=== PATIENT | female | born 1950 | race Two or more races ===

== ENCOUNTER 2017-11-05 12:03 | Emergency (ER) | payer OTHER ==
[2017-11-05 12:12] VITALS: BMI 35.3
[2017-11-05] MEDS ORDERED: MECLIZINE HCL 25 MG TABLET (FP) PO ONE (12:27)
--- NOTE | 2017-11-05 12:27 | PDOC ---
History of Present Illness - General Chief Complaint: Lightheaded Stated Complaint: HEADACHES Time Seen by Provider: 11/05/17 12:17 History Source: Patient Exam Limitations: No Limitations - History of Present Illness Initial Comments: 11/05/17 12:28 67y F hx of dm, htn, hl, insomnia, asthma, presents with with vertigo. pt notes the symptoms since awakening this morning. vertigo is intermittent and sensation of room spinning, worse with standing,r esolved with siting/staying still. associate with mild pressure like headache. no associated vision changes, dysarthriat, numbness/tingling/weakness no neck pain, back pain, chest pain, recent trauma no fever/chills, cough, sob, abd pain, diarrhea, melena, bpr, dysuria no recent URIs, ear ringing pt notes she has hx of vertigo several years ago, but has not had any since and this feels similar to that pt notes she had lab work from her PMD 1 month ago and everything was normal Past History - Past Medical History Allergies/Adverse Reactions: Allergies Allergy/AdvReac Type Severity Reaction Status Date / Time shrimp Allergy Verified 11/05/17 12:11 Home Medications: Ambulatory Orders Lisinopril 40 mg PO DAILY 11/05/17 Meclizine HCl [Antivert -] 25 mg PO TID PRN #15 tablet 11/05/17 Simvastatin [Zocor -] 20 mg PO HS 11/05/17 Asthma: Yes CVA: No COPD: No DVT: No Diabetes: Yes HTN: Yes Hypercholesterolemia: Yes Other medical history: Insomnia - Immunization History Immunization Up to Date: Yes - Suicide/Smoking/Psychosocial Hx Smoking History: Never smoked Have you smoked in the past 12 months: No Information on smoking cessation initiated: No Hx Alcohol Use: No Drug/Substance Use Hx: No Substance Use Type: None Review of Systems - Review of Systems Able to Perform ROS?: Yes Comments:: 11/05/17 12:32 Constitutional - no reported Fever, Chills, HEENT: no reported vision changes, sore throat Respiratory: no reported cough, sob, hemoptysis Cardiac: no reported chest pain, palpitations, leg swelling Abd/GI: no reported abd pain, nausea, vomiting, blood per rectum, melena, diarrhea : no reported dysuria, frequency, discharge Musculskelatal - no reported back pain, joint swelling skin - no reported bruising, erythema, rash neurological: +mild headache vertigo no reported numbness, focal weakness, tingling, ataxia, hematologic: no reported anemia, easy bruising, easy bleeding *Physical Exam - Vital Signs Last Vital Signs Temp Pulse Resp BP Pulse Ox 98.3 F 64 17 139/87 99 11/05/17 12:08 11/05/17 12:08 11/05/17 12:08 11/05/17 12:08 11/05/17 12:08 - Physical Exam Comments: 11/05/17 12:32 GENERAL: The patient is awake, alert, and fully oriented, Nontoxic - in no acute distress. HEAD: Normocephalic, atraumatic. EYES: extraocular movements intact, sclera anicteric, conjunctiva clear. ENT: Normal voice, Moist mucous membranes. NECK: Normal range of motion, supple LUNGS: Breath sounds equal, clear to auscultation bilaterally. No wheezes, no rhonchi, no rales. HEART: Regular rate and rhythm, normal S1 and S2 without murmur, rub or gallop. ABDOMEN: Soft, nontender, normoactive bowel sounds. No guarding, no rebound. . No CVA tenderness EXTREMITIES: Normal range of motion, no edema. No clubbing or cyanosis. No cords, erythema, or tenderness PSYCH: Normal mood, normal affect. SKIN: Warm, Dry, normal turgor, NEURO: Mental status: The patient is oriented x3. Cranial nerves: Cranial nerves II through XII are intact Motor: The upper extremities are 5 over 5 in all muscle groups. The lower extremities are 5 over 5 in all muscle groups. Negative pronator drift Sensation: Sensation is intact to light touch throughout. romberg negative Cerebellar: Tkgjrn-bolbhu-waws is normal in both upper extremities. Heel-knee- shultz is normal in both lower extremities. rapid alternating movements are normal. Reflexes: 2+ and symmetric in the upper and lower extremities. Gait: Normal. Heel and toe walking are normal. Tandem gait is normal. Heart Score/ECG Review - ECG Impressions Comment:: 11/05/17 15:32 Twelve-lead EKG was performed and reviewed by me. There is normal sinus rhythm with a rate of 59 normal axis tw flattening in lead III Medical Decision Making - Medical Decision Making 11/05/17 12:57 suspect pts symptms secondar to periperhal vertigo no signs of central vertigo - normal neuro exam, normal gaint, normal finger to nose/rapid alternating movements labs as outpatient was normal will ck ekg to screen for arrythima meclizine for vertigo will reassess 11/05/17 15:28 pt feeling improved after meclizine awaiting ekg if neg will dc with pmd fu return precautions were discussed I discussed the physical exam findings, ancillary test results and final diagnoses with the patient. I answered all of the patient's questions. The patient was satisfied with the care received and felt comfortable with the discharge plan and treatment plan. The patient will call their primary care physician within 24 hours to arrange follow-up and will return to the Emergency Department with any new, persistent or worsening symptoms. *DC/Admit/Observation/Transfer Diagnosis at time of Disposition: Vertigo - Discharge Dispostion Disposition: HOME Condition at time of disposition: Improved Admit: No - Referrals Referrals: Sancho Amador MD [Staff Physician] - Naresh Nelson MD [Staff Physician] - - Patient Instructions Printed Discharge Instructions: DI for Benign Paroxysmal Positional Vertigo Additional Instructions: Regrese al departamento de emergencia de inmediato con CUALQUIER sntoma nuevo, persistente o que empeore, incluidos mareos persistentes, cambios en la vista, problemas con pastrana habla o cualquier otra inquietud. [address] la meclizina segn lo recetado segn sea necesario para los mareos. DEBE llamar y hacer un seguimiento con pastrana mdico para matt mayor evaluaci n de willow sntomas. Los resultados fueron discutidos con usted. Asegrese de que pastrana mdico revise los resultados de pastrana evaluacin de emergencia. Return to the emergency department immediately with ANY new, persistent or worsening symptoms including persistent dizziness, vision changes, trouble with your speech or any other concerns. Take the meclizine as prescribed as needed for dizzinesss. You MUST call and follow up with your doctor thursday for further evaluation of your symptoms. Results were discussed with you. Please make sure your doctor reviews the results of your emergency evaluation. Print Language: HUNGARIAN - Post Discharge Activity
[2017-11-05] MEDS ORDERED: MECLIZINE HCL 25 MG TABLET (FP) ONE (12:34)
[2017-11-05 16:01] VITALS: BP 119/73; PULSE 62; TEMP 98
--- NOTE | 2017-11-06 09:29 | EKG ---
Test Reason : Blood Pressure : / mmHG Vent. Rate : 059 BPM Atrial Rate : 059 BPM P-R Int : 160 ms QRS Dur : 076 ms QT Int : 458 ms P-R-T Axes : 042 054 032 degrees QTc Int : 453 ms SINUS BRADYCARDIA POSSIBLE LEFT ATRIAL ENLARGEMENT ABNORMAL ECG NO PREVIOUS ECGS AVAILABLE Confirmed by ANNA MARINA MD ([id number]) on 11/06/2017 9:28:52 AM Referred By: Confirmed By:ANNA MARINA MD
== END 2017-11-05 16:04 | disposition home or self-care (01) ==
LOC: JER 12:03
DX: H81.10 Benign paroxysmal vertigo, unspecified ear (principal); I10 Essential (primary) hypertension; E78.00 Pure hypercholesterolemia, unspecified; J45.909 Unspecified asthma, uncomplicated; E11.9 Type 2 diabetes mellitus without complications; Z79.84 Long term (current) use of oral hypoglycemic drugs; G47.00 Insomnia, unspecified
CPT/HCPCS: 93005; 93010; 99282-25

== ENCOUNTER 2018-12-30 09:00 | Emergency (ER) | payer OTHER | END 2018-12-30 14:54 | disposition home or self-care (01) | LOC: JER 09:00 ==

== ENCOUNTER 2019-06-01 09:33 | Emergency (ER) | payer OTHER ==
[2019-06-01 10:01] VITALS: PULSE 65; BMI 34.0
--- NOTE | 2019-06-01 10:29 | PDOC ---
History of Present Illness - General Chief Complaint: Back Pain Stated Complaint: NECK AND BACK PAIN Time Seen by Provider: 06/01/19 09:59 History Source: Patient Exam Limitations: Language Barrier ([employer] used. [id number]) Past History - Travel Traveled outside of the country in the last 30 days: No Close contact w/someone who was outside of country & ill: No - Past Medical History Allergies/Adverse Reactions: Allergies Allergy/AdvReac Type Severity Reaction Status Date / Time shrimp Allergy Verified 12/30/18 09:28 Home Medications: Ambulatory Orders Lisinopril 40 mg PO DAILY 11/05/17 Simvastatin [Zocor -] 20 mg PO HS 11/05/17 Calcium Carbonate [Calcium] 500 mg PO ASDIR 12/30/18 Hydrochlorothiazide [Hctz -] 12.5 mg PO DAILY 12/30/18 Melatonin [Melatin] 3 mg PO HS 12/30/18 Metformin HCl [Glucophage] 500 mg PO DAILY 12/30/18 Insulin Glargine,Hum.rec.anlog [Lantus Solostar PEN -] 8 unit SQ HS 06/01/19 Liraglutide [Victoza -] 1.2 mg SQ DAILY@0700 06/01/19 Asthma: Yes CVA: No COPD: No DVT: No Diabetes: Yes HTN: Yes Hypercholesterolemia: Yes - Immunization History Immunization Up to Date: Yes - Psycho Social/Smoking Cessation Hx Smoking History: Never smoked Have you smoked in the past 12 months: No Hx Alcohol Use: No Drug/Substance Use Hx: No Substance Use Type: None Review of Systems - Review of Systems Able to Perform ROS?: Yes Comments:: 06/01/19 10:37 CONSTITUTIONAL: Present: generalized weakness Absent: fever, chills, diaphoresis, generalized weakness, malaise, loss of appetite GASTROINTESTINAL: Absent: abdominal pain, abdominal distension, nausea, vomiting, diarrhea, constipation, melena, hematochezia GENITOURINARY: Absent: dysuria, frequency, urgency, hesitancy, hematuria, flank pain, genital pain MUSCULOSKELETAL: Present: low back pain, neck pain Absent: arthralgia, joint swelling SKIN: Absent: rash, itching, pallor NEUROLOGIC: Absent: headache, focal weakness or paresthesias, dizziness, unsteady gait, seizure, mental status changes, bladder or bowel incontinence PSYCHIATRIC: Absent: anxiety, depression, suicidal or homicidal ideation, hallucinations. Is the patient limited Trinidadian proficient: No *Physical Exam - Vital Signs Last Vital Signs Temp Pulse Resp BP Pulse Ox 98 F 65 18 122/65 95 06/01/19 09:51 06/01/19 09:51 06/01/19 09:51 06/01/19 09:51 06/01/19 09:51 - Physical Exam Comments: 06/01/19 10:39 GENERAL: Well developed, well nourished. Awake and alert. No acute distress. HEENT: Normocephalic, atraumatic. PERRLA, EOMI. No conjunctival pallor. Sclera are non- icteric. Moist mucous membranes. Oropharynx is clear. NECK: Supple. Full ROM. No JVD. Carotid pulses 2+ and symmetric, without bruits. No thyromegaly. No lymphadenopathy. ABDOMINAL: Soft. Non-tender. Non-distended. No rebound or guarding. No organomegaly. Normoactive bowel sounds. MUSCULOSKELETAL Normal range of motion at all joints. No bony deformities or tenderness. No CVA tenderness. EXTREMITIES: No cyanosis. No clubbing. No edema. No calf tenderness. SKIN: Warm and dry. Normal capillary refill. No rashes. No jaundice. NEUROLOGICAL: Alert, awake, appropriate. Cranial nerves 2-12 intact. No deficits to light touch and temperature in face, upper extremities and lower extremities. No motor deficits in the in face, upper extremities and lower extremities. Normoreflexic in the upper and lower extremities. Normal speech. Toes are down- going bilaterally. Gait is normal without ataxia. PSYCHIATRIC: Cooperative. Good eye contact. Appropriate mood and affect. ED Treatment Course - LABORATORY CBC & Chemistry Diagram: 06/01/19 10:55 06/01/19 10:35 Medical Decision Making - Medical Decision Making 06/01/19 10:39 The patient is a 68-year-old female with past medical history of hyperlipidemia , IDDM, hypertension, presents to the ER today for back pain and neck pain starting yesterday. She states that she recently saw her primary care doctor and they changed her medications after her last blood work results were given. She states that they placed her back on simvastatin, and increased her dose of her Victoza. She states that after taking the medications at their no doses, her back pain began. She states it was all the way from her neck down to her legs. She states that the pain is midline. She has not fallen or done any strenuous activity. She does not work. Denies fevers, chills, lightheadedness , dizziness, numbness and tingling to the affected extremities, weakness the affected extremities, saddle anesthesia and bladder bowel incontinence, and urinary symptoms. A/P: Low back pain -Pt with TTP of the b/l paraspinous muscles, of the c-spine through the lumbar sacral spine, with palpable knot consistent with muscle spasm. Positive midline tenderness. Negative straight leg raise testing bilaterally. -No trauma, or fever. No saddle anesthesia or bladder/bowel incontinence. No CVA tenderness. -Pt is neurologically intact on exam with no focal findings. -Given the patient's medication has changed recently, will order basic labs to rule out rhabdo, lactic acidosis. -Muscle relaxers, fluids and lidocaine patch given for symptoms -Reevaluate 06/01/19 16:50 1st lactic acid back at 3.2 -->2.1 after 2 L of fluids Likely d/t diabetic medication combination including Metformin Hold metformin Pending call to PCP for follow up and management of sugar now that we are holding Metformin Sign out given to FAN Keys. Discharge - Discharge Information Problems reviewed: Yes Clinical Impression/Diagnosis: Lactic acidosis Lower back pain Qualifiers: Chronicity: acute Back pain laterality: unspecified Sciatica presence: without sciatica Qualified Code(s): M54.5 - Low back pain Condition: Improved Disposition: HOME - Follow up/Referral Referrals: ON STAFF,NOT [Primary Care Provider] - - Patient Discharge Instructions Patient Printed Discharge Instructions: DI for Low Back Pain Additional Instructions: Thank you for choosing [facility]. It was a pleasure taking care of you. You may take Tylenol 650 mg every 6 hours as needed for pain. Do not take more than 4000 mg of Tylenol in 1 day Please stop taking your Metformin You will need to see your doctor tomorrow for adjustment of your diabetic medications Return to the Emergency Department if your symptoms worsen or persist, you have fever, shortness of breath, chest pain, severe abdominal pain, vomiting, weakness of extremities (arms and/or legs), changes in vision or walking, unable to control bowel or bladder movements or other concerning symptoms. Chyna pollack el [facility]. Fue un placer cuidar de ti. Puede oswaldo Tylenol 650 mg cada 6 horas segn sea necesario para el dolor. No tome ms de 4000 mg de Tylenol en 1 da. Por favor, deje de oswaldo pastrana metformina Necesitar rebecca a pastrana mdico maana para ajustar willow medicamentos para la diabetes. Regrese al departamento de emergencias si willow sntomas empeoran o persisten, tiene fiebre, falta de aliento, dolor en el pecho, dolor abdominal intenso, vmitos, debilidad de las extremidades (brazos y / o piernas), cambios en la visin o al caminar, incapaz de controlar el intestino. o movimientos de la vejiga u otros sntomas relacionados. Print Language: YORUBA - Post Discharge Activity
[2019-06-01] MEDS ORDERED: SODIUM CHLORIDE 1,000 ML IV STA ×2 (10:31→12:19)
[2019-06-01] MEDS ORDERED: LIDOCAINE 5% TOPICAL PATCH TP ONE (10:32)
[2019-06-01] MEDS ORDERED: diazePAM 5 MG TABLET PO ONE (10:32)
[2019-06-01] MEDS ORDERED: diazePAM 5 MG TABLET ONE (10:37)
[2019-06-01 11:15] LABS: BASO % 0.4 % (0-2.0); EOS % 1.1 % (0-4.5); HEMATOCRIT 34.1 % (32.4-45.2); HEMOGLOBIN 11.4 GM/dL (10.7-15.3); LYMPH % 16.2 % (8-40); MCH 29.1 pg (25.7-33.7); MCHC 33.4 g/dl (32.0-36.0); MEAN CELL VOLUME 86.9 fl (80-96); MEAN PLT VOLUME 8.6 fl (7.5-11.1); MONO % 5.9 % (3.8-10.2); NEUT % 76.4 % (42.8-82.8); PLATELET COUNT 274 K/MM3 (134-434); RBC 3.93 M/mm3 (3.60-5.2); RDW 13.5 % (11.6-15.6); WHITE BLOOD COUNT 9.2 K/mm3 (4.0-10.0)
[2019-06-01] MEDS ORDERED: LIDOCAINE 5% TOPICAL PATCH ONE (11:17)
[2019-06-01 11:31] LABS: URINE APPEARANCE CLEAR; URINE BILIRUBIN NEGATIVE (NEGATIVE); URINE COLOR YELLOW; URINE GLUCOSE (UA) NEGATIVE (NEGATIVE); URINE KETONE TRACE (NEGATIVE); URINE LEUK ESTERASE NEGATIVE (NEGATIVE); URINE NITRITE NEGATIVE (NEGATIVE); URINE PROTEIN NEGATIVE (NEGATIVE); URINE UROBILINOGEN 0.2 mg/dL (0.2-1.0)
--- NOTE | 2019-06-01 11:38 | EKG ---
Test Reason : Blood Pressure : / mmHG Vent. Rate : 065 BPM Atrial Rate : 065 BPM P-R Int : 174 ms QRS Dur : 084 ms QT Int : 404 ms P-R-T Axes : 043 053 036 degrees QTc Int : 420 ms NORMAL SINUS RHYTHM NORMAL ECG WHEN COMPARED WITH ECG OF 05-NOV-2017 15:24, NO SIGNIFICANT CHANGE WAS FOUND Confirmed by LEXI ROSARIO MD ([id number]) on 06/01/2019 11:38:46 AM Referred By: Confirmed By:LEXI ROSARIO MD
[2019-06-01 12:02] LABS: ALBUMIN 3.4 g/dl (3.4-5.0); BILIRUBIN,TOTAL 0.4 mg/dL (0.2-1); BLOOD UREA NITROGEN 19.1 mg/dL (7-18); CALCIUM 9.2 mg/dL (8.5-10.1); CREATININE 0.9 mg/dL (0.55-1.3); POTASSIUM 5.1 mmol/L (3.5-5.1); TOT PROT 7.3 g/dl (6.4-8.2)
[2019-06-01 14:46] VITALS: BP 127/75; TEMP 98.1
[2019-06-01] MEDS ORDERED: ACETAMINOPHEN 325 MG TABLET (FP) PO ONE (17:03)
--- NOTE | 2019-06-01 17:07 | PDOC ---
*Physical Exam - Vital Signs Last Vital Signs Temp Pulse Resp BP Pulse Ox 98.1 F 65 18 127/75 97 06/01/19 14:40 06/01/19 14:40 06/01/19 14:40 06/01/19 14:40 06/01/19 14:40 ED Treatment Course - LABORATORY CBC & Chemistry Diagram: 06/01/19 10:55 06/01/19 10:35 - ADDITIONAL ORDERS Additional order review: Laboratory Results 06/01/19 06/01/19 06/01/19 13:55 11:10 10:55 Sodium Potassium Chloride Carbon Dioxide Anion Gap BUN Creatinine Est GFR (CKD-EPI)AfAm Est GFR (CKD-EPI)NonAf Random Glucose Lactic Acid 2.1 H 3.2 H* Calcium Total Bilirubin AST ALT Alkaline Phosphatase Creatine Kinase Creatine Kinase Index CK-MB (CK-2) Total Protein Albumin TSH Urine Color Yellow Urine Appearance Clear Urine pH 5.0 Ur Specific [place] 1.024 Urine Protein Negative Urine Glucose (UA) Negative Urine Ketones Trace H Urine Blood Negative Urine Nitrite Negative Urine Bilirubin Negative Urine Urobilinogen 0.2 Ur Leukocyte Esterase Negative 06/01/19 06/01/19 10:35 10:35 Sodium 135 L Potassium 5.1 Chloride 102 Carbon Dioxide 26 Anion Gap 7 L BUN 19.1 H Creatinine 0.9 Est GFR (CKD-EPI)AfAm 76.14 Est GFR (CKD-EPI)NonAf 65.70 Random Glucose 161 H Lactic Acid Calcium 9.2 Total Bilirubin 0.4 AST 61 H ALT 60 Alkaline Phosphatase 97 Creatine Kinase 165 Creatine Kinase Index No Result Required. CK-MB (CK-2) < 1.0 Total Protein 7.3 Albumin 3.4 TSH 0.65 Urine Color Urine Appearance Urine pH Ur Specific [place] Urine Protein Urine Glucose (UA) Urine Ketones Urine Blood Urine Nitrite Urine Bilirubin Urine Urobilinogen Ur Leukocyte Esterase 06/01/19 10:55 RBC 3.93 MCV 86.9 MCHC 33.4 RDW 13.5 MPV 8.6 Neutrophils % 76.4 D Lymphocytes % 16.2 D Monocytes % 5.9 Eosinophils % 1.1 D Basophils % 0.4 - Medications Given in the ED: ED Medications Discontinued Medications Generic Name Dose Route Start Last Admin Trade Name Freq PRN Reason Stop Dose Admin Diazepam 5 mg 06/01/19 10:32 06/01/19 10:45 Valium - PO 06/01/19 10:33 5 mg ONCE ONE Administration Sodium Chloride 1,000 mls @ 1,000 mls/hr 06/01/19 10:31 06/01/19 10:45 Normal Saline - IV 06/01/19 11:30 1,000 mls/hr ASDIR STA Administration Sodium Chloride 1,000 mls @ 1,000 mls/hr 06/01/19 12:19 06/01/19 12:29 Normal Saline - IV 06/01/19 13:18 1,000 mls/hr ASDIR STA Administration Lidocaine 1 patch 06/01/19 10:32 06/01/19 11:22 Lidoderm Patch - TP 06/01/19 10:33 1 patch ONCE ONE Administration Medical Decision Making - Medical Decision Making Patient signed out to my by FAN Dunham S/O was to reach patient PCP to obtain follow-up for patient However, clinic closed at this time Patient endorses improvement in back pain and is ambulatory Lactic acid improved Possible cause of lactic acidosis believed to be metformin Patient advised to stop the metformin and f/u with her PCP Patient states she understands and will go to the clinic tomorrow 06/01/19 17:03 Discharge - Discharge Information Problems reviewed: Yes Clinical Impression/Diagnosis: Lactic acidosis Lower back pain Qualifiers: Chronicity: acute Back pain laterality: unspecified Sciatica presence: without sciatica Qualified Code(s): M54.5 - Low back pain Condition: Improved Disposition: HOME - Admission No - Additional Discharge Information Prescription Drug Monitoring Program (I-STOP) results: I-STOP not reviewed - Follow up/Referral Referrals: ON STAFF,NOT [Primary Care Provider] - - Patient Discharge Instructions Patient Printed Discharge Instructions: DI for Low Back Pain Additional Instructions: Thank you for choosing [facility]. It was a pleasure taking care of you. You may take Tylenol 650 mg every 6 hours as needed for pain. Do not take more than 4000 mg of Tylenol in 1 day Please stop taking your Metformin You will need to see your doctor tomorrow for adjustment of your diabetic medications Return to the Emergency Department if your symptoms worsen or persist, you have fever, shortness of breath, chest pain, severe abdominal pain, vomiting, weakness of extremities (arms and/or legs), changes in vision or walking, unable to control bowel or bladder movements or other concerning symptoms. Chyna por elegir el [facility]. Fue un placer cuidar de ti. Puede oswaldo Tylenol 650 mg cada 6 horas segn sea necesario para el dolor. No tome ms de 4000 mg de Tylenol en 1 da. Por favor, deje de oswaldo pastrana metformina Necesitar rebecca a pastrana mdico maana para ajustar [place] medicamentos para la diabetes. Regrese al departamento de emergencias si willow sntomas empeoran o persisten, tiene fiebre, falta de aliento, dolor en el pecho, dolor abdominal intenso, vmitos, debilidad de las extremidades (brazos y / o piernas), cambios en la visin o al caminar, incapaz de controlar el intestino. o movimientos de la vejiga u otros sntomas relacionados. Print Language: BURKINAN - Post Discharge Activity
[2019-06-01] MEDS ORDERED: ACETAMINOPHEN 325 MG TABLET (FP) ONE (17:09)
[2019-06-01] MEDS ORDERED: LIDOCAINE PATCH REMOVAL MC SCH (22:00)
== END 2019-06-01 17:38 | disposition home or self-care (01) ==
LOC: JER 09:33
DX: E11.10 Type 2 diabetes mellitus with ketoacidosis without coma (principal); Z79.4 Long term (current) use of insulin; I10 Essential (primary) hypertension; E78.00 Pure hypercholesterolemia, unspecified; M62.830 Muscle spasm of back
CPT/HCPCS: 36415; 80053; 81003; 82550; 82553; 83605; 84443; 85025; 87086; 87186; 93005; 93010; 99283-25; J7030

== ENCOUNTER 2020-08-10 03:18 | Emergency (ER) | payer OTHER ==
[2020-08-10 03:38] VITALS: BMI 35.5
[2020-08-10 04:20] LABS: BASO % 0.4 % (0-2.0); EOS % 0.6 % (0-4.5); HEMATOCRIT 40.3 % (32.4-45.2); HEMOGLOBIN 13.1 GM/dL (10.7-15.3); LYMPH % 8.1 % (8-40); MCH 28.3 pg (25.7-33.7); MCHC 32.5 g/dl (32.0-36.0); MEAN CELL VOLUME 87.1 fl (80-96); MEAN PLT VOLUME 9.2 fl (7.5-11.1); MONO % 3.6 % (3.8-10.2); NEUT % 87.3 % (42.8-82.8); PLATELET COUNT 289 K/MM3 (134-434); RBC 4.63 M/mm3 (3.60-5.2); RDW 13.8 % (11.6-15.6)
[2020-08-10 04:43] LABS: CHLORIDE 104 mmol/L (98-107); SODIUM 139 mmol/L (136-145)
[2020-08-10 04:46] LABS: ALBUMIN 3.4 g/dl (3.4-5.0); ANION GAP 10 MMOL/L (8-16); BLOOD UREA NITROGEN 15.6 mg/dL (7-18); CALCIUM 9.1 mg/dL (8.5-10.1); CO2 25 mmol/L (21-32); GLUCOSE,RANDOM 234 mg/dL (74-106)
[2020-08-10 04:49] LABS: SGOT/AST 26 U/L (15-37); SGPT/ALT 36 U/L (13-61)
[2020-08-10 04:51] LABS: BILIRUBIN,TOTAL 0.4 mg/dL (0.2-1); TOT PROT 7.4 g/dl (6.4-8.2)
[2020-08-10 04:52] LABS: ALK PHOS 94 U/L (45-117)
[2020-08-10 07:00] VITALS: BP 141/90; PULSE 90; TEMP 97.9
== END 2020-08-10 07:02 | disposition home or self-care (01) ==
LOC: JER 03:18
DX: R10.9 Unspecified abdominal pain (principal)
CPT/HCPCS: 36415; 71046-TC-FY; 80053; 82550; 84484; 85025; 93005; 93010; 99284-25

== ENCOUNTER 2021-07-07 15:37 | Emergency (ER) | payer OTHER ==
[2021-07-07 15:56] VITALS: BMI 31.1
[2021-07-07] MEDS ORDERED: MAG HYDROX/AL HYDROX/SIMETH -MYLANTA- ORAL SUSPENSION PO ONE (16:41)
[2021-07-07] MEDS ORDERED: SODIUM CHLORIDE 0.9% 1000 ML INFUS.BAG IV ONE (16:41)
[2021-07-07] MEDS ORDERED: FAMOTIDINE 20 MG/50 ML IVPB 20 MG/50 ML MG IVPB ONE ×2 (16:41→16:49)
[2021-07-07] MEDS ORDERED: ACETAMINOPHEN 1000 MG/100 ML VIAL IVPB ONE (16:41)
[2021-07-07] MEDS ORDERED: ACETAMINOPHEN INJECTION 100 ML IVPB ONE (16:49)
[2021-07-07] MEDS ORDERED: MAG HYDROX/AL HYDROX/SIMETH 30 ML UNIT-DOSE CUP ONE (16:49)
[2021-07-07 17:26] LABS: BASO % 0.8 % (0-2.0); EOS % 2.7 % (0-4.5); HEMATOCRIT 37.3 % (32.4-45.2); HEMOGLOBIN 12.5 GM/dL (10.7-15.3); MCH 28.5 pg (25.7-33.7); MCHC 33.4 g/dl (32.0-36.0); MEAN CELL VOLUME 85.3 fl (80-96); MEAN PLT VOLUME 8.4 fl (7.5-11.1); NEUT % 64.5 % (42.8-82.8); PLATELET COUNT 285 10^3/uL (134-434); RBC 4.38 M/mm3 (3.60-5.2); RDW 14.7 % (11.6-15.6); URINE APPEARANCE CLEAR; URINE BILIRUBIN NEGATIVE (NEGATIVE); URINE COLOR YELLOW; URINE GLUCOSE (UA) TRACE (NEGATIVE); URINE KETONE NEGATIVE (NEGATIVE); URINE LEUK ESTERASE NEGATIVE (NEGATIVE); URINE NITRITE NEGATIVE (NEGATIVE); URINE PROTEIN NEGATIVE (NEGATIVE); URINE UROBILINOGEN 0.2 mg/dL (0.2-1.0); WHITE BLOOD COUNT 10.3 K/mm3 (4.0-10.0)
[2021-07-07 17:37] LABS: INR 0.97 (0.83-1.09); PROTHROMBIN TIME (PATIENT) 11.3 SEC (9.7-13.0)
[2021-07-07 17:39] LABS: ACTIVATED PTT 30.3 SECONDS (25.2-36.5)
[2021-07-07 17:42] LABS: CALCIUM 9.1 mg/dL (8.5-10.1)
[2021-07-07 17:43] LABS: ALBUMIN 3.6 g/dl (3.4-5.0); BLOOD UREA NITROGEN 12.4 mg/dL (7-18)
[2021-07-07 17:45] LABS: CREATININE 0.9 mg/dL (0.55-1.3)
[2021-07-07 17:47] LABS: BILIRUBIN,TOTAL 0.5 mg/dL (0.2-1); TOT PROT 7.7 g/dl (6.4-8.2)
[2021-07-07 20:40] VITALS: BP 115/73; PULSE 67; TEMP 97.8
== END 2021-07-07 20:55 | disposition home or self-care (01) ==
LOC: JER 15:37
PROC: 3E0333Z Introduction of Anti-inflammatory into Peripheral Vein, Percutaneous Approach (ICD-10-PCS; principal; 2021-07-07)
PROC: 3E033GC Introduction of Other Therapeutic Substance into Peripheral Vein, Percutaneous Approach (ICD-10-PCS; 2021-07-07)
DX: R10.9 Unspecified abdominal pain (principal); R19.7 Diarrhea, unspecified
CPT/HCPCS: 36415; 71101-TC-LT-FY; 80053; 81003; 83690; 84484; 85025; 85610; 85730; 86850; 86900; 86901; 87086; 93005; 93010; 96374; 96375; 99285-25; C9803; J0131; U0003; U0005

== ENCOUNTER 2021-11-06 12:30 | Emergency (ER) | payer OTHER ==
[2021-11-06 12:53] VITALS: BMI 30.9
[2021-11-06] MEDS ORDERED: SODIUM CHLORIDE 0.9% 500 ML INFUS.BAG IV ONE (13:21)
[2021-11-06 14:56] LABS: BASO % 0.6 % (0-2.0); EOS % 3.7 % (0-4.5); HEMATOCRIT 39.4 % (32.4-45.2); HEMOGLOBIN 12.9 GM/dL (10.7-15.3); LYMPH % 20.3 % (8-40); MCH 28.5 pg (25.7-33.7); MCHC 32.8 g/dl (32.0-36.0); MEAN PLT VOLUME 8.7 fl (7.5-11.1); MONO % 8.6 % (3.8-10.2); NEUT % 66.8 % (42.8-82.8); PLATELET COUNT 274 10^3/uL (134-434); RBC 4.53 M/mm3 (3.60-5.2); RDW 14.4 % (11.6-15.6)
[2021-11-06 15:17] LABS: ALBUMIN 3.6 g/dl (3.4-5.0); CALCIUM 9.4 mg/dL (8.5-10.1)
[2021-11-06 15:18] LABS: BLOOD UREA NITROGEN 12.4 mg/dL (7-18); MAGNESIUM 2.1 mg/dL (1.8-2.4)
[2021-11-06 15:20] LABS: CREATININE 0.9 mg/dL (0.55-1.3)
[2021-11-06 15:22] LABS: BILIRUBIN,TOTAL 0.4 mg/dL (0.2-1); TOT PROT 7.7 g/dl (6.4-8.2)
[2021-11-06 15:35] LABS: URINE APPEARANCE CLEAR; URINE BILIRUBIN NEGATIVE (NEGATIVE); URINE COLOR YELLOW; URINE GLUCOSE (UA) NEGATIVE (NEGATIVE); URINE KETONE NEGATIVE (NEGATIVE); URINE LEUK ESTERASE NEGATIVE (NEGATIVE); URINE NITRITE NEGATIVE (NEGATIVE); URINE PROTEIN NEGATIVE (NEGATIVE); URINE UROBILINOGEN 0.2 mg/dL (0.2-1.0)
[2021-11-06] MEDS ORDERED: ACETAMINOPHEN 1000 MG/100 ML BAG IVPB ONE (16:26)
[2021-11-06] MEDS ORDERED: ACETAMINOPHEN INJECTION 100 ML IVPB ONE (16:59)
[2021-11-06 18:47] VITALS: BP 143/79; PULSE 88; TEMP 98.6
[2021-11-07 14:08] LABS: SARS-CoV-2 NAA Not Detected (Not Detected)
== END 2021-11-06 18:52 | disposition home or self-care (01) ==
LOC: JER 12:30
PROC: 3E033GC Introduction of Other Therapeutic Substance into Peripheral Vein, Percutaneous Approach (ICD-10-PCS; principal; 2021-11-06)
DX: E11.65 Type 2 diabetes mellitus with hyperglycemia (principal); R51.9 Headache, unspecified
CPT/HCPCS: 36415; 71046-TC-FY; 80053; 81003; 82962; 83735; 84484; 85025; 87086; 87804; 93005; 93010; 99285-25; C9803-CS; U0003; U0005

== ENCOUNTER 2022-02-20 00:22 | Inpatient (IN) | payer OTHER ==
[2022-02-20] MEDS ORDERED: SODIUM CHLORIDE 1,000 ML IV ONE (01:02)
[2022-02-20 01:25] LABS: BASO % 0.8 % (0-2.0); HEMATOCRIT 37.9 % (32.4-45.2); HEMOGLOBIN 12.4 GM/dL (10.7-15.3); LYMPH % 23.6 % (8-40); MCH 27.9 pg (25.7-33.7); MCHC 32.7 g/dl (32.0-36.0); MEAN CELL VOLUME 85.4 fl (80-96); MEAN PLT VOLUME 8.9 fl (7.5-11.1); MONO % 6.5 % (3.8-10.2); NEUT % 67.1 % (42.8-82.8); PLATELET COUNT 292 10^3/uL (134-434); RBC 4.44 M/mm3 (3.60-5.2); RDW 14.7 % (11.6-15.6); VENOUS BASE EXCESS 2.7 mmol/L (-2-2); VENOUS O2 SATURATION 62.2 % (70-80); VENOUS PCO2 50.5 mmHg (38-52); VENOUS PH 7.374 (7.310-7.410); WHITE BLOOD COUNT 11.1 K/mm3 (4.0-10.0)
[2022-02-20 01:34] LABS: INR 0.9 (0.83-1.09); PROTHROMBIN TIME (PATIENT) 10.3 SEC (9.7-13.0)
[2022-02-20 01:37] LABS: ACTIVATED PTT 32.6 SECONDS (25.2-36.5)
[2022-02-20 01:49] LABS: BLOOD UREA NITROGEN 20.8 mg/dL (7-18); CALCIUM 9.2 mg/dL (8.5-10.1); MAGNESIUM 2.2 mg/dL (1.8-2.4)
[2022-02-20 01:50] LABS: ALBUMIN 3.6 g/dl (3.4-5.0)
[2022-02-20 01:52] LABS: PHOSPHOROUS 3.9 mg/dL (2.5-4.9)
[2022-02-20 01:53] LABS: CREATININE 1.1 mg/dL (0.55-1.3)
[2022-02-20 01:54] LABS: BILIRUBIN,TOTAL 0.9 mg/dL (0.2-1); TOT PROT 7.7 g/dl (6.4-8.2)
[2022-02-20 02:48] LABS: PH,URINE 6.5 (5.0-8.0); URINE APPEARANCE CLEAR; URINE BILIRUBIN NEGATIVE (NEGATIVE); URINE COLOR YELLOW; URINE GLUCOSE (UA) 3+ (NEGATIVE); URINE KETONE NEGATIVE (NEGATIVE); URINE LEUK ESTERASE NEGATIVE (NEGATIVE); URINE NITRITE NEGATIVE (NEGATIVE); URINE PROTEIN NEGATIVE (NEGATIVE); URINE UROBILINOGEN 0.2 mg/dL (0.2-1.0)
[2022-02-20 04:11] VITALS: BMI 30.1
[2022-02-20 04:46] LABS: LACTIC ACID 2.6 mmol/L (0.4-2.0)
[2022-02-20] MEDS ORDERED: LACTATED RINGERS SOLUTION 1,000 ML/1,000 ML INFUS.BAG IV SCH (06:00)
[2022-02-20 06:38] VITALS: TEMP 98
[2022-02-20] MEDS ORDERED: CALCIUM (OYSTER SHELL) 500 MG TABLET (FP) PO SCH ×2 (07:00→08:00)
[2022-02-20] MEDS: INSULIN SLIDING SCALE (NOVOLOG) 1 VIAL SQ SCH ×2 (08:03→14:27)
[2022-02-20] MEDS ORDERED: LISINOPRIL 20 MG TABLET ONE (09:39)
[2022-02-20] MEDS ORDERED: ENOXAPARIN NA (PORCINE) 40 MG/0.4 ML DISP.SYRIN SQ ONE (09:39)
[2022-02-20] MEDS ORDERED: PANTOPRAZOLE 40 MG TABLET PO ONE (09:39)
[2022-02-20 09:50] VITALS: RESP 18
[2022-02-20] MEDS ORDERED: ENOXAPARIN NA (PORCINE) 40 MG/0.4 ML DISP.SYRIN SQ SCH (10:00)
[2022-02-20] MEDS ORDERED: PANTOPRAZOLE 40 MG TABLET PO SCH (10:00)
[2022-02-20] MEDS ORDERED: LISINOPRIL 20 MG TABLET PO SCH (10:00)
[2022-02-20 13:03] LABS: HEMATOCRIT 38.3 % (32.4-45.2); HEMOGLOBIN 12.7 GM/dL (10.7-15.3); MCH 28.3 pg (25.7-33.7); MCHC 33.1 g/dl (32.0-36.0); MEAN CELL VOLUME 85.7 fl (80-96); PLATELET COUNT 280 10^3/uL (134-434); RBC 4.48 M/mm3 (3.60-5.2); RDW 14.5 % (11.6-15.6); WHITE BLOOD COUNT 10.7 K/mm3 (4.0-10.0)
[2022-02-20 13:27] LABS: CALCIUM 9.5 mg/dL (8.5-10.1)
[2022-02-20 13:28] LABS: ALBUMIN 3.8 g/dl (3.4-5.0); BLOOD UREA NITROGEN 23.2 mg/dL (7-18); CALCIUM 9.2 mg/dL (8.5-10.1)
[2022-02-20 13:29] LABS: ALBUMIN 3.8 g/dl (3.4-5.0); BLOOD UREA NITROGEN 20.8 mg/dL (7-18); MAGNESIUM 2.5 mg/dL (1.8-2.4)
[2022-02-20 13:31] LABS: CREATININE 0.8 mg/dL (0.55-1.3)
[2022-02-20 13:32] LABS: CREATININE 0.8 mg/dL (0.55-1.3)
[2022-02-20 13:33] LABS: BILIRUBIN,TOTAL 0.4 mg/dL (0.2-1); TOT PROT 7.6 g/dl (6.4-8.2); TOT PROT 7.7 g/dl (6.4-8.2)
[2022-02-20 14:31] VITALS: BP 135/74; PULSE 66
[2022-02-20] MEDS ORDERED: MELATONIN 1 MG TABLET PO SCH (22:00)
[2022-02-20] MEDS ORDERED: ATORVASTATIN CA 40 MG TABLET (FP) PO SCH (22:00)
== END 2022-02-20 14:30 | disposition home or self-care (01) | DRG 684 ==
LOC: JER 00:22 → JERBED 01:28 → OBSVTOIN 05:12
PROVIDERS: ADMIT Internal Medicine; ATTEND Internal Medicine
DX: N17.9 Acute kidney failure, unspecified (principal); R55 Syncope and collapse; R42 Dizziness and giddiness; I10 Essential (primary) hypertension; E78.5 Hyperlipidemia, unspecified; E86.0 Dehydration; E11.65 Type 2 diabetes mellitus with hyperglycemia; D72.829 Elevated white blood cell count, unspecified; Z79.4 Long term (current) use of insulin; E78.00 Pure hypercholesterolemia, unspecified; T38.3X5A Adverse effect of insulin and oral hypoglycemic [antidiabetic] drugs, initial encounter
CPT/HCPCS: 0241U-QW; 36415; 70450-TC; 71045-TC-FY; 80053; 81003; 82550; 82553; 82803; 82962; 83036; 83605; 83735; 84100; 84443; 84484; 85025; 85027; 85610; 85730; 86850; 86900; 86901; 87086; 93005; 93010; 99285-25; G0378

== ENCOUNTER 2022-05-05 12:51 | Emergency (ER) | payer OTHER ==
[2022-05-05 14:24] VITALS: BP 159/84; PULSE 74; RESP 17; TEMP 97.7; BMI 35.1
== END 2022-05-05 16:16 | disposition home or self-care (01) ==
LOC: JER 12:51
DX: R73.9 Hyperglycemia, unspecified (principal)
CPT/HCPCS: 82962; 99283-25

== ENCOUNTER 2022-07-05 13:41 | Emergency (ER) | payer OTHER ==
[2022-07-05 14:30] VITALS: RESP 18; BMI 34.9
[2022-07-05] MEDS ORDERED: ACETAMINOPHEN 325 MG TABLET (FP) PO ONE (15:38)
[2022-07-05] MEDS ORDERED: METOCLOPRAMIDE HCL INJECTION 10 MG/2 ML VIAL IVPUSH ONE (15:38)
[2022-07-05] MEDS ORDERED: ACETAMINOPHEN 325 MG TABLET (FP) ONE (15:58)
[2022-07-05] MEDS ORDERED: METOCLOPRAMIDE HCL INJECTION 10 MG/2 ML VIAL ONE (15:58)
[2022-07-05 16:30] LABS: BASO % 1.3 % (0-2.0); EOS % 2.4 % (0-4.5); HEMATOCRIT 40.6 % (32.4-45.2); HEMOGLOBIN 13.2 GM/dL (10.7-15.3); LYMPH % 21.9 % (8-40); MCH 27.8 pg (25.7-33.7); MCHC 32.6 g/dl (32.0-36.0); MEAN CELL VOLUME 85.5 fl (80-96); MEAN PLT VOLUME 9.2 fl (7.5-11.1); MONO % 6.3 % (3.8-10.2); NEUT % 68.1 % (42.8-82.8); PLATELET COUNT 295 10^3/uL (134-434); RBC 4.75 M/mm3 (3.60-5.2); RDW 14.5 % (11.6-15.6); WHITE BLOOD COUNT 10.4 K/mm3 (4.0-10.0)
[2022-07-05 17:39] LABS: URINE APPEARANCE CLEAR; URINE BILIRUBIN NEGATIVE (NEGATIVE); URINE COLOR YELLOW; URINE GLUCOSE (UA) 3+ (NEGATIVE); URINE KETONE TRACE (NEGATIVE); URINE LEUK ESTERASE NEGATIVE (NEGATIVE); URINE NITRITE NEGATIVE (NEGATIVE); URINE PROTEIN NEGATIVE (NEGATIVE); URINE UROBILINOGEN 0.2 mg/dL (0.2-1.0)
[2022-07-05] MEDS ORDERED: LACTATED RINGERS SOLUTION 1000 ML INFUS.BAG IV ONE (17:53)
[2022-07-05 18:45] LABS: ALBUMIN 3.6 g/dl (3.4-5.0); BLOOD UREA NITROGEN 17.9 mg/dL (7-18); MAGNESIUM 2.1 mg/dL (1.8-2.4)
[2022-07-05 18:48] LABS: CREATININE 1.1 mg/dL (0.55-1.3)
[2022-07-05 18:49] LABS: BILIRUBIN,TOTAL 0.3 mg/dL (0.2-1); TOT PROT 7.8 g/dl (6.4-8.2)
[2022-07-05 21:49] VITALS: BP 148/62; PULSE 72; TEMP 97.7
== END 2022-07-05 21:50 | disposition home or self-care (01) ==
LOC: JER 13:41
PROC: 3E033GC Introduction of Other Therapeutic Substance into Peripheral Vein, Percutaneous Approach (ICD-10-PCS; principal; 2022-07-05)
DX: R51.9 Headache, unspecified (principal); R74.01 Elevation of levels of liver transaminase levels
CPT/HCPCS: 0241U-QW; 36415; 70450-TC; 71046-TC-FY; 76705-TC; 80053; 81003; 82962; 83735; 85025; 85730; 93005; 93010; 99285-25

== ENCOUNTER 2022-09-06 19:37 | Inpatient (IN) | payer OTHER ==
[2022-09-06 19:50] VITALS: BMI 37.8
[2022-09-06] MEDS ORDERED: MAG HYDROX/AL HYDROX/SIMETH 30 ML UNIT-DOSE CUP PO ONE (20:25)
[2022-09-06] MEDS ORDERED: FAMOTIDINE 20 MG/50 ML IVPB 20 MG/50 ML MG IVPB ONE ×2 (20:25→20:29)
[2022-09-06] MEDS ORDERED: ACETAMINOPHEN 1000 MG/100 ML BAG IVPB ONE (20:25)
[2022-09-06] MEDS ORDERED: MAG HYDROX/AL HYDROX/SIMETH 30 ML UNIT-DOSE CUP ONE (20:29)
[2022-09-06] MEDS ORDERED: ACETAMINOPHEN INJECTION 100 ML IVPB ONE (20:29)
[2022-09-06 21:02] LABS: BASO % 0.4 % (0-2.0); EOS % 1.1 % (0-4.5); HEMATOCRIT 42.8 % (32.4-45.2); HEMOGLOBIN 14.2 GM/dL (10.7-15.3); LYMPH % 8.8 % (8-40); MCH 28.4 pg (25.7-33.7); MCHC 33.2 g/dl (32.0-36.0); MEAN CELL VOLUME 85.7 fl (80-96); MEAN PLT VOLUME 10.4 fl (7.5-11.1); MONO % 4.1 % (3.8-10.2); NEUT % 85.6 % (42.8-82.8); PLATELET COUNT 301 10^3/uL (134-434); RBC 4.99 M/mm3 (3.60-5.2); RDW 14.4 % (11.6-15.6); WHITE BLOOD COUNT 19.1 K/mm3 (4.0-10.0)
[2022-09-06] MEDS ORDERED: PIPERACILLIN/TAZOB 3.375 GM 3.375 GM in DEXTROSE 5%-WATER - 50 ML IVPB ONE (21:11)
[2022-09-06] MEDS ORDERED: PIPERACILLIN/TAZOB 3.375 GM 3.375 GM/50 ML BAG IVPB ONE (21:17)
[2022-09-06 21:29] LABS: MAGNESIUM 1.7 mg/dL (1.8-2.4)
[2022-09-06 21:30] LABS: CREATININE 0.9 mg/dL (0.55-1.3)
[2022-09-06] MEDS ORDERED: MAGNESIUM SULF 50% (8.12 MEQ/2 ML-1 GM VIAL) IVPB ONE (21:30)
[2022-09-06 21:31] LABS: BLOOD UREA NITROGEN 17.3 mg/dL (7-18)
[2022-09-06 21:32] LABS: CALCIUM 8.9 mg/dL (8.5-10.1); TOT PROT 7.8 g/dl (6.4-8.2)
[2022-09-06 21:34] LABS: ALBUMIN 3.4 g/dl (3.4-5.0)
[2022-09-06 21:37] LABS: BILIRUBIN,TOTAL 0.5 mg/dL (0.2-1)
[2022-09-06] MEDS ORDERED: MAGNESIUM SULFATE IN WATER 2 GM/50 ML IVPB IVPB ONE (21:46)
[2022-09-07] MEDS ORDERED: ENOXAPARIN NA (PORCINE) 40 MG/0.4 ML DISP.SYRIN SQ SCH (10:00)
[2022-09-07 10:06] LABS: HEMOGLOBIN 12.9 GM/dL (10.7-15.3); MCH 28.8 pg (25.7-33.7); MEAN CELL VOLUME 84.9 fl (80-96); MEAN PLT VOLUME 9.5 fl (7.5-11.1); PLATELET COUNT 270 10^3/uL (134-434); RBC 4.48 M/mm3 (3.60-5.2); RDW 14.5 % (11.6-15.6)
[2022-09-07 10:29] LABS: CALCIUM 8.9 mg/dL (8.5-10.1)
[2022-09-07 10:33] LABS: CREATININE 0.9 mg/dL (0.55-1.3)
[2022-09-07] MEDS: SODIUM CHLORIDE 1,000 ML IV SCH (12:10)
[2022-09-07 15:26] LABS: ALBUMIN 3.3 g/dl (3.4-5.0)
[2022-09-07 15:29] LABS: BILIRUBIN,DIRECT 0.2 mg/dL (0.0-0.2)
[2022-09-07 15:31] LABS: BILIRUBIN,TOTAL 0.5 mg/dL (0.2-1); TOT PROT 7.4 g/dl (6.4-8.2)
[2022-09-07 16:46] LABS: URINE APPEARANCE CLEAR; URINE BILIRUBIN NEGATIVE (NEGATIVE); URINE COLOR YELLOW; URINE GLUCOSE (UA) NEGATIVE (NEGATIVE); URINE KETONE TRACE (NEGATIVE); URINE LEUK ESTERASE NEGATIVE (NEGATIVE); URINE NITRITE NEGATIVE (NEGATIVE); URINE PROTEIN TRACE (NEGATIVE)
[2022-09-07] MEDS: INSULIN SLIDING SCALE (NOVOLOG) 1 VIAL SQ SCH ×2 (17:07→21:57)
[2022-09-07] MEDS ORDERED: ATORVASTATIN CA 40 MG TABLET (FP) PO SCH (22:00)
[2022-09-08] MEDS: SODIUM CHLORIDE 1,000 ML IV SCH (03:17)
[2022-09-08] MEDS: INSULIN SLIDING SCALE (NOVOLOG) 1 VIAL SQ SCH ×4 (06:22→22:04)
[2022-09-08 10:35] LABS: BASO % 0.4 % (0-2.0); EOS % 3.1 % (0-4.5); HEMATOCRIT 36.3 % (32.4-45.2); HEMOGLOBIN 12.3 GM/dL (10.7-15.3); LYMPH % 37.3 % (8-40); MCH 28.9 pg (25.7-33.7); MCHC 33.7 g/dl (32.0-36.0); MEAN CELL VOLUME 85.8 fl (80-96); MEAN PLT VOLUME 8.9 fl (7.5-11.1); MONO % 12.7 % (3.8-10.2); NEUT % 46.5 % (42.8-82.8); PLATELET COUNT 244 10^3/uL (134-434); RBC 4.23 M/mm3 (3.60-5.2); RDW 14.4 % (11.6-15.6); WHITE BLOOD COUNT 7.1 K/mm3 (4.0-10.0)
[2022-09-08] MEDS: LISINOPRIL 20 MG TABLET PO SCH (10:36)
[2022-09-08] MEDS: PANTOPRAZOLE 40 MG TABLET PO SCH (10:36)
[2022-09-08 11:01] LABS: CALCIUM 8.5 mg/dL (8.5-10.1)
[2022-09-08 11:02] LABS: ALBUMIN 3.2 g/dl (3.4-5.0); MAGNESIUM 2.1 mg/dL (1.8-2.4)
[2022-09-08 11:05] LABS: CREATININE 0.6 mg/dL (0.55-1.3); PHOSPHOROUS 3.6 mg/dL (2.5-4.9)
[2022-09-08 11:06] LABS: BILIRUBIN,TOTAL 0.6 mg/dL (0.2-1)
[2022-09-08 12:10] LABS: HEPATITIS B SURFACE AG MATERN NON-REACTIVE (NONREACTIVE)
[2022-09-08] MEDS ORDERED: PATIENT'S OWN MEDICATION (NON-FORMULARY) (Diclofenac Sodium 0.01 MG/MG Gel) TP PRN (14:04)
[2022-09-08] MEDS: ENOXAPARIN NA (PORCINE) 40 MG/0.4 ML DISP.SYRIN SQ SCH (14:58)
[2022-09-08] MEDS: LORATADINE 10 MG TABLET PO SCH (14:58)
[2022-09-08] MEDS: MECLIZINE HCL 25 MG TABLET (FP) PO SCH (14:59)
[2022-09-08] MEDS: AMMONIUM LACTATE 12% LOTION 225 GM BOTTLE TP SCH ×2 (15:31→22:04)
[2022-09-08] MEDS ORDERED: LATANOPROST 0.005% OPHTH SOLN 2.5ML BOTTLE OU SCH (22:00)
[2022-09-08] MEDS: CALCIUM (OYSTER SHELL) 500 MG TABLET (FP) PO SCH (22:50)
[2022-09-09 04:54] VITALS: RESP 18
[2022-09-09] MEDS: INSULIN SLIDING SCALE (NOVOLOG) 1 VIAL SQ SCH ×2 (06:15→12:40)
[2022-09-09] MEDS: ENOXAPARIN NA (PORCINE) 40 MG/0.4 ML DISP.SYRIN SQ SCH (09:37)
[2022-09-09] MEDS: PANTOPRAZOLE 40 MG TABLET PO SCH (09:38)
[2022-09-09] MEDS: LORATADINE 10 MG TABLET PO SCH (09:38)
[2022-09-09] MEDS: LISINOPRIL 20 MG TABLET PO SCH (09:38)
[2022-09-09] MEDS: MECLIZINE HCL 25 MG TABLET (FP) PO SCH (09:38)
[2022-09-09] MEDS: CALCIUM (OYSTER SHELL) 500 MG TABLET (FP) PO SCH (09:38)
[2022-09-09] MEDS: AMMONIUM LACTATE 12% LOTION 225 GM BOTTLE TP SCH (09:40)
[2022-09-09] MEDS ORDERED: FLUTICASONE PROP 0.05% 16 GM NASAL SPRAY NS SCH (10:00)
[2022-09-09 10:02] LABS: HEMATOCRIT 35.2 % (32.4-45.2); MCH 29.2 pg (25.7-33.7); MCHC 34.1 g/dl (32.0-36.0); MEAN CELL VOLUME 85.5 fl (80-96); PLATELET COUNT 264 10^3/uL (134-434); RBC 4.12 M/mm3 (3.60-5.2); RDW 14.5 % (11.6-15.6)
[2022-09-09 10:29] LABS: ALBUMIN 3.2 g/dl (3.4-5.0); CALCIUM 8.7 mg/dL (8.5-10.1)
[2022-09-09 10:30] LABS: BLOOD UREA NITROGEN 10.9 mg/dL (7-18); MAGNESIUM 1.9 mg/dL (1.8-2.4)
[2022-09-09 10:32] LABS: CREATININE 0.9 mg/dL (0.55-1.3); PHOSPHOROUS 4.1 mg/dL (2.5-4.9)
[2022-09-09 10:33] LABS: BILIRUBIN,TOTAL 0.4 mg/dL (0.2-1)
[2022-09-09 13:54] VITALS: BP 117/62; PULSE 65; TEMP 98.7
[2022-09-09] MEDS: CLOTRIMAZOLE TP SCH (15:27)
== END 2022-09-09 15:40 | disposition home or self-care (01) | DRG 390 ==
LOC: JER 19:37 → JERBED 09-07 00:09 → J5S 09-07 03:57
PROVIDERS: ADMIT Internal Medicine; ATTEND Internal Medicine
DX: K56.51 Intestinal adhesions [bands], with partial obstruction (principal); I10 Essential (primary) hypertension; E83.42 Hypomagnesemia; E11.65 Type 2 diabetes mellitus with hyperglycemia; Z79.84 Long term (current) use of oral hypoglycemic drugs; E66.9 Obesity, unspecified; Z68.34 Body mass index [BMI] 34.0-34.9, adult; E78.5 Hyperlipidemia, unspecified; R74.01 Elevation of levels of liver transaminase levels; D72.829 Elevated white blood cell count, unspecified
CPT/HCPCS: 0241U-QW; 36415; 71045-TC-FY; 74018-TC-FY; 74019-TC-FY; 74177-TC; 76705-TC; 80048; 80053; 80076; 81003; 82962; 83690; 83735; 84100; 84484; 85025; 85027; 86705; 86707; 86708; 86709; 87040; 87086; 87340; 87350; 87517; 87522; 93005; 93010; 97116-GP; 97161-GP; 99285-25; Q9967

== ENCOUNTER 2022-09-29 15:37 | Emergency (ER) | payer OTHER ==
[2022-09-29 15:57] VITALS: TEMP 98.1; BMI 38.9
[2022-09-29] MEDS ORDERED: ACETAMINOPHEN 1000 MG/100 ML BAG IVPB ONE (16:50)
[2022-09-29] MEDS ORDERED: ACETAMINOPHEN INJECTION 100 ML IVPB ONE (17:13)
[2022-09-29 17:39] LABS: BASO % 1.1 % (0-2.0); EOS % 3.4 % (0-4.5); HEMATOCRIT 38.6 % (32.4-45.2); HEMOGLOBIN 12.8 GM/dL (10.7-15.3); LYMPH % 24.8 % (8-40); MCH 27.8 pg (25.7-33.7); MEAN CELL VOLUME 84.3 fl (80-96); MEAN PLT VOLUME 9.1 fl (7.5-11.1); MONO % 7.5 % (3.8-10.2); NEUT % 63.2 % (42.8-82.8); PLATELET COUNT 288 10^3/uL (134-434); RBC 4.59 M/mm3 (3.60-5.2); RDW 14.6 % (11.6-15.6); WHITE BLOOD COUNT 10.9 K/mm3 (4.0-10.0)
[2022-09-29 17:40] LABS: URINE APPEARANCE CLEAR; URINE BILIRUBIN NEGATIVE (NEGATIVE); URINE COLOR YELLOW; URINE GLUCOSE (UA) TRACE (NEGATIVE); URINE KETONE NEGATIVE (NEGATIVE); URINE LEUK ESTERASE NEGATIVE (NEGATIVE); URINE NITRITE NEGATIVE (NEGATIVE); URINE PROTEIN NEGATIVE (NEGATIVE); URINE UROBILINOGEN 0.2 mg/dL (0.2-1.0)
[2022-09-29 18:07] LABS: ALBUMIN 3.5 g/dl (3.4-5.0); BLOOD UREA NITROGEN 14.8 mg/dL (7-18); CALCIUM 9.4 mg/dL (8.5-10.1)
[2022-09-29 18:11] LABS: BILIRUBIN,TOTAL 0.3 mg/dL (0.2-1); TOT PROT 7.7 g/dl (6.4-8.2)
[2022-09-29 18:25] LABS: LACTIC ACID 2.4 mmol/L (0.4-2.0)
[2022-09-29] MEDS ORDERED: SODIUM CHLORIDE 0.9% 500 ML INFUS.BAG IV ONE ×2 (18:39→21:30)
[2022-09-29 21:12] LABS: LACTIC ACID 2.6 mmol/L (0.4-2.0)
[2022-09-29 23:49] LABS: HIV INTERPRETATION NEGATIVE (NEGATIVE)
[2022-09-30 02:15] VITALS: BP 155/75; PULSE 64; RESP 20
== END 2022-09-30 02:30 | disposition home or self-care (01) ==
LOC: JER 15:37
PROC: 3E033GC Introduction of Other Therapeutic Substance into Peripheral Vein, Percutaneous Approach (ICD-10-PCS; principal; 2022-09-29)
DX: R10.84 Generalized abdominal pain (principal)
CPT/HCPCS: 36415; 74174-TC; 80053; 81003; 83605; 83690; 84484; 85025; 86704; 86803; 87086; 87340; 87389; 87517; 93005; 93010; 96374; 99285-25

== ENCOUNTER 2023-05-02 00:10 | Emergency (ER) | payer OTHER ==
[2023-05-02 00:34] VITALS: BP 139/71; PULSE 80; RESP 18; TEMP 98.8; BMI 35.1
[2023-05-02] MEDS ORDERED: LIDOCAINE 5% TOPICAL PATCH TP ONE (01:12)
== END 2023-05-02 02:17 | disposition home or self-care (01) ==
LOC: JER 00:10
DX: I10 Essential (primary) hypertension (principal); M54.2 Cervicalgia; G89.29 Other chronic pain
CPT/HCPCS: 82962; 93005; 93010; 99283-25

== ENCOUNTER 2023-07-02 17:53 | Emergency (ER) | payer OTHER ==
[2023-07-02 18:11] VITALS: BP 145/80; PULSE 70; RESP 18; TEMP 98.4; BMI 37.8
== END 2023-07-02 20:05 | disposition home or self-care (01) ==
LOC: JER 17:53
DX: I10 Essential (primary) hypertension (principal)
CPT/HCPCS: 99282-25

== ENCOUNTER 2023-09-14 13:48 | Observation (INO) | payer OTHER ==
[2023-09-14 13:52] VITALS: BMI 35.1
[2023-09-14] MEDS ORDERED: MECLIZINE HCL 25 MG TABLET (FP) ONE (16:33)
[2023-09-14] MEDS: MECLIZINE HCL 25 MG TABLET (FP) PO ONE (16:47)
[2023-09-14 17:15] LABS: PH,URINE 6.5 (5.0-8.0); URINE APPEARANCE CLEAR; URINE BILIRUBIN NEGATIVE (NEGATIVE); URINE COLOR YELLOW; URINE GLUCOSE (UA) NEGATIVE (NEGATIVE); URINE KETONE NEGATIVE (NEGATIVE); URINE LEUK ESTERASE NEGATIVE (NEGATIVE); URINE NITRITE NEGATIVE (NEGATIVE); URINE PROTEIN NEGATIVE (NEGATIVE); URINE UROBILINOGEN 0.2 mg/dL (0.2-1.0)
[2023-09-14 17:46] LABS: BASO % 0.5 % (0-2.0); HEMATOCRIT 40.9 % (32.4-45.2); HEMOGLOBIN 13.5 GM/dL (10.7-15.3); LYMPH % 28.9 % (8-40); MCH 28.8 pg (25.7-33.7); MCHC 33.1 g/dl (32.0-36.0); MEAN CELL VOLUME 87.1 fl (80-96); MEAN PLT VOLUME 8.5 fl (7.5-11.1); MONO % 5.9 % (3.8-10.2); NEUT % 62.7 % (42.8-82.8); PLATELET COUNT 315 10^3/uL (134-434); RDW 13.8 % (11.6-15.6); WHITE BLOOD COUNT 11.1 K/mm3 (4.0-10.0)
[2023-09-14 17:53] LABS: INR 0.93 (0.83-1.09); PROTHROMBIN TIME (PATIENT) 10.8 SEC (9.7-13.0)
[2023-09-14 18:18] LABS: POTASSIUM 4.7 mmol/L (3.5-5.1)
[2023-09-14 18:19] LABS: CALCIUM 9.6 mg/dL (8.5-10.1)
[2023-09-14 18:20] LABS: ALBUMIN 3.8 g/dl (3.4-5.0); BLOOD UREA NITROGEN 10.1 mg/dL (7-18)
[2023-09-14 18:23] LABS: CREATININE 0.7 mg/dL (0.55-1.3)
[2023-09-14 18:25] LABS: BILIRUBIN,TOTAL 0.2 mg/dL (0.2-1)
[2023-09-14] MEDS ORDERED: MECLIZINE HCL 25 MG TABLET (FP) PO PRN (20:58)
[2023-09-14] MEDS ORDERED: FLUTICASONE PROP 0.05% 16 GM NASAL SPRAY NS PRN (20:58)
[2023-09-14] MEDS ORDERED: PATIENT'S OWN MEDICATION (NON-FORMULARY) (Diclofenac Sodium 0.01 MG/MG Gel) TD PRN (20:58)
[2023-09-14] MEDS ORDERED: LORATADINE 10 MG TABLET PO PRN (20:58)
[2023-09-15] MEDS ORDERED: amLODIPine BESYLATE 5 MG TABLET (FP) ONE ×2 (00:41→12:19)
[2023-09-15] MEDS: amLODIPine BESYLATE 5 MG TABLET (FP) PO ONE (00:44)
[2023-09-15] MEDS: ACETAMINOPHEN 325 MG TABLET (FP) PO PRN (00:45)
[2023-09-15] MEDS: ACETAMINOPHEN 1000 MG/100 ML BAG IVPB ONE (01:33)
[2023-09-15] MEDS ORDERED: MECLIZINE HCL 25 MG TABLET (FP) PO PRN (10:00)
[2023-09-15 11:14] VITALS: RESP 18
[2023-09-15] MEDS: INSULIN ASPART SLIDING SCALE (NOVOLOG) 1 VIAL SQ SCH (12:17)
[2023-09-15] MEDS ORDERED: ENOXAPARIN NA (PORCINE) 40 MG/0.4 ML DISP.SYRIN SQ ONE (12:19)
[2023-09-15] MEDS ORDERED: LISINOPRIL 20 MG TABLET ONE (12:19)
[2023-09-15] MEDS: FLUTICASONE PROP 0.05% 16 GM NASAL SPRAY NS SCH (12:26)
[2023-09-15] MEDS: amLODIPine BESYLATE 5 MG TABLET (FP) PO SCH (12:26)
[2023-09-15] MEDS: LISINOPRIL 20 MG TABLET PO SCH (12:26)
[2023-09-15] MEDS: ENOXAPARIN NA (PORCINE) 40 MG/0.4 ML DISP.SYRIN SQ SCH (12:26)
[2023-09-15 16:46] VITALS: BP 146/77; PULSE 70; TEMP 98.1
[2023-09-15] MEDS ORDERED: LATANOPROST 0.005% OPHTH SOLN 2.5ML BOTTLE OU SCH (22:00)
== END 2023-09-15 18:32 | disposition home or self-care (01) ==
LOC: JER 13:48 → JERBED 16:13
PROVIDERS: ADMIT Internal Medicine; ATTEND Nurse Practitioner Acute Care
DX: R51.9 Headache, unspecified (principal); I10 Essential (primary) hypertension; J45.909 Unspecified asthma, uncomplicated; E11.9 Type 2 diabetes mellitus without complications; E78.00 Pure hypercholesterolemia, unspecified; Z91.013 Allergy to seafood; Z90.49 Acquired absence of other specified parts of digestive tract; Z90.79 Acquired absence of other genital organ(s); Z29.89 Encounter for other specified prophylactic measures
CPT/HCPCS: 0241U-QW; 36415; 70450-TC; 70551-TC; 71045-TC-FY; 80053; 81003; 82962; 83036; 84484; 85025; 85610; 85730; 87086; 93005; 93010; 99285-25; G0378

== ENCOUNTER 2023-10-23 01:29 | Emergency (ER) | payer OTHER ==
[2023-10-23 02:06] VITALS: BP 134/84; PULSE 84; RESP 16; TEMP 97.5; BMI 34.9
== END 2023-10-23 03:04 | disposition home or self-care (01) ==
LOC: JER 01:29
DX: H93.293 Other abnormal auditory perceptions, bilateral (principal); H93.13 Tinnitus, bilateral; H92.03 Otalgia, bilateral
CPT/HCPCS: 99283-25

== ENCOUNTER 2024-03-03 13:37 | Emergency (ER) | payer OTHER ==
[2024-03-03 14:02] VITALS: BP 156/83; PULSE 70; RESP 19; TEMP 97.9; BMI 31.7
[2024-03-03 14:59] LABS: VENOUS BASE EXCESS 0.5 mmol/L (-2-2); VENOUS O2 SATURATION 69.5 % (70-80); VENOUS PCO2 44.9 mmHg (38-52); VENOUS PH 7.38 (7.310-7.410)
[2024-03-03] MEDS: SODIUM CHLORIDE 0.9% 500 ML INFUS.BAG IV ONE (14:59)
[2024-03-03 15:08] LABS: BASO % 0.7 % (0-2.0); EOS % 2.1 % (0-4.5); HEMATOCRIT 38.5 % (32.4-45.2); HEMOGLOBIN 12.9 GM/dL (10.7-15.3); LYMPH % 20.7 % (8-40); MCH 28.8 pg (25.7-33.7); MCHC 33.4 g/dl (32.0-36.0); MEAN CELL VOLUME 86.3 fl (80-96); MEAN PLT VOLUME 9.4 fl (7.5-11.1); MONO % 5.2 % (3.8-10.2); NEUT % 71.3 % (42.8-82.8); PLATELET COUNT 299 10^3/uL (134-434); RBC 4.46 M/mm3 (3.60-5.2); RDW 13.9 % (11.6-15.6); WHITE BLOOD COUNT 10.8 K/mm3 (4.0-10.0)
[2024-03-03 15:33] LABS: CALCIUM 9.1 mg/dL (8.5-10.1)
[2024-03-03 15:34] LABS: ALBUMIN 3.5 g/dl (3.4-5.0); BLOOD UREA NITROGEN 12.1 mg/dL (7-18)
[2024-03-03 15:37] LABS: CREATININE 0.7 mg/dL (0.55-1.3)
[2024-03-03 15:38] LABS: BILIRUBIN,TOTAL 0.3 mg/dL (0.2-1); TOT PROT 7.8 g/dl (6.4-8.2)
[2024-03-03 17:39] LABS: POTASSIUM 4.1 mmol/L (3.5-5.1)
[2024-03-03 17:41] LABS: BLOOD UREA NITROGEN 11.5 mg/dL (7-18); CALCIUM 9.3 mg/dL (8.5-10.1)
[2024-03-03 17:45] LABS: CREATININE 0.7 mg/dL (0.55-1.3)
== END 2024-03-03 18:30 | disposition home or self-care (01) ==
LOC: JER 13:37
DX: R42 Dizziness and giddiness (principal); I10 Essential (primary) hypertension; E11.65 Type 2 diabetes mellitus with hyperglycemia
CPT/HCPCS: 36415; 70450-TC; 71046-TC-FY; 80048; 80053; 82010; 82803; 82962; 84484; 85025; 93005; 93010; 99285-25

== ENCOUNTER 2024-05-21 23:23 | Observation (INO) | payer OTHER ==
[2024-05-22 00:45] LABS: BASO % 0.9 % (0-2.0); EOS % 3.8 % (0-4.5); HEMATOCRIT 41.4 % (32.4-45.2); HEMOGLOBIN 13.3 GM/dL (10.7-15.3); LYMPH % 19.3 % (8-40); MCH 27.7 pg (25.7-33.7); MCHC 32.1 g/dl (32.0-36.0); MEAN CELL VOLUME 86.5 fl (80-96); MEAN PLT VOLUME 8.7 fl (7.5-11.1); MONO % 5.7 % (3.8-10.2); NEUT % 70.3 % (42.8-82.8); PLATELET COUNT 312 10^3/uL (134-434); RBC 4.79 M/mm3 (3.60-5.2); RDW 14.3 % (11.6-15.6); WHITE BLOOD COUNT 13.4 K/mm3 (4.0-10.0)
[2024-05-22 01:06] LABS: POTASSIUM 3.9 mmol/L (3.5-5.1)
[2024-05-22 01:09] LABS: ALBUMIN 3.6 g/dl (3.4-5.0); BLOOD UREA NITROGEN 9.4 mg/dL (7-18); CALCIUM 9.3 mg/dL (8.5-10.1)
[2024-05-22 01:12] LABS: CREATININE 0.9 mg/dL (0.55-1.3)
[2024-05-22 01:13] LABS: URINE APPEARANCE CLEAR; URINE BILIRUBIN NEGATIVE (NEGATIVE); URINE COLOR YELLOW; URINE GLUCOSE (UA) NEGATIVE (NEGATIVE); URINE KETONE NEGATIVE (NEGATIVE); URINE LEUK ESTERASE NEGATIVE (NEGATIVE); URINE NITRITE NEGATIVE (NEGATIVE); URINE PROTEIN NEGATIVE (NEGATIVE)
[2024-05-22 01:14] LABS: BILIRUBIN,TOTAL 1.8 mg/dL (0.2-1); TOT PROT 7.5 g/dl (6.4-8.2)
[2024-05-22 05:25] LABS: BILIRUBIN,DIRECT 1.5 mg/dL (0.0-0.2)
[2024-05-22] MEDS ORDERED: ONDANSETRON 4 MG/2 ML VIAL IVPUSH PRN (06:15)
[2024-05-22] MEDS ORDERED: PIPERACILLIN/TAZOB 3.375 GM 3.375 GM/50 ML BAG IVPB ONE (06:38)
[2024-05-22] MEDS: PIPERACILLIN/TAZOB 3.375 GM 3.375 GM in DEXTROSE 5%-WATER - 50 ML IVPB ONE (06:53)
[2024-05-22] MEDS: LACTATED RINGERS SOLUTION 1,000 ML/1,000 ML INFUS.BAG IV SCH (06:53)
[2024-05-22] MEDS: ONDANSETRON 4 MG/2 ML VIAL IVPB ONE (07:00)
[2024-05-22] MEDS ORDERED: PATIENT'S OWN MEDICATION (NON-FORMULARY) (Diclofenac Sodium 0.01 MG/MG Gel) TP PRN (07:33)
[2024-05-22] MEDS: amLODIPine BESYLATE 5 MG TABLET (FP) PO SCH (09:40)
[2024-05-22] MEDS: POLYETHYLENE GLYCOL (HEALTHYLAX) 3350 17 GM PACKET PO SCH (09:40)
[2024-05-22] MEDS: LISINOPRIL 20 MG TABLET PO SCH (09:40)
[2024-05-22 09:59] LABS: POTASSIUM 3.9 mmol/L (3.5-5.1)
[2024-05-22 10:00] LABS: BASO % 0.6 % (0-2.0); EOS % 4.5 % (0-4.5); HEMOGLOBIN 12.7 GM/dL (10.7-15.3); LYMPH % 24.2 % (8-40); MCH 28.2 pg (25.7-33.7); MCHC 32.6 g/dl (32.0-36.0); MEAN CELL VOLUME 86.5 fl (80-96); MEAN PLT VOLUME 9.4 fl (7.5-11.1); MONO % 6.4 % (3.8-10.2); NEUT % 64.3 % (42.8-82.8); PLATELET COUNT 283 10^3/uL (134-434); RBC 4.51 M/mm3 (3.60-5.2); RDW 14.2 % (11.6-15.6); WHITE BLOOD COUNT 10.4 K/mm3 (4.0-10.0)
[2024-05-22 10:02] LABS: ALBUMIN 3.5 g/dl (3.4-5.0); BLOOD UREA NITROGEN 9.1 mg/dL (7-18); CALCIUM 8.7 mg/dL (8.5-10.1)
[2024-05-22 10:04] LABS: BILIRUBIN,DIRECT 1.4 mg/dL (0.0-0.2)
[2024-05-22 10:05] LABS: CREATININE 0.8 mg/dL (0.55-1.3)
[2024-05-22 10:06] LABS: BILIRUBIN,TOTAL 1.8 mg/dL (0.2-1)
[2024-05-22 10:08] LABS: TOT PROT 7.4 g/dl (6.4-8.2)
[2024-05-22] MEDS: INSULIN ASPART SLIDING SCALE (NOVOLOG) 1 VIAL SQ SCH (11:46)
[2024-05-22 12:01] LABS: INR 1.01 (0.83-1.09); PROTHROMBIN TIME (PATIENT) 11.6 SEC (9.7-13.0)
[2024-05-22 12:03] VITALS: BMI 34.8
[2024-05-22] MEDS: AMPICILLIN NA/SULBACTAM NA 3 GM in SODIUM CHLORIDE 100 ML IVPB SCH (14:35)
[2024-05-22] MEDS ORDERED: FLUTICASONE PROP 0.05% 16 GM NASAL SPRAY NS PRN (15:00)
[2024-05-22] MEDS: INSULIN (LEVEMIR) 100 UNITS/ML UNITS SQ SCH (21:22)
[2024-05-22] MEDS: LATANOPROST 0.005% OPHTH SOLN 2.5ML BOTTLE OU SCH (22:13)
[2024-05-23] MEDS: MECLIZINE HCL 25 MG TABLET (FP) PO PRN (06:01)
[2024-05-23 10:49] LABS: BASO % 1.1 % (0-2.0); EOS % 4.3 % (0-4.5); HEMATOCRIT 38.1 % (32.4-45.2); HEMOGLOBIN 12.5 GM/dL (10.7-15.3); LYMPH % 30.6 % (8-40); MCH 28.1 pg (25.7-33.7); MCHC 32.9 g/dl (32.0-36.0); MEAN CELL VOLUME 85.2 fl (80-96); MEAN PLT VOLUME 9.5 fl (7.5-11.1); MONO % 7.3 % (3.8-10.2); NEUT % 56.7 % (42.8-82.8); PLATELET COUNT 273 10^3/uL (134-434); RBC 4.47 M/mm3 (3.60-5.2); RDW 14.3 % (11.6-15.6); WHITE BLOOD COUNT 9.5 K/mm3 (4.0-10.0)
[2024-05-23 11:11] LABS: POTASSIUM 3.9 mmol/L (3.5-5.1)
[2024-05-23 11:15] LABS: ALBUMIN 3.6 g/dl (3.4-5.0); BLOOD UREA NITROGEN 10.3 mg/dL (7-18); CALCIUM 9.5 mg/dL (8.5-10.1)
[2024-05-23 11:19] LABS: CREATININE 0.7 mg/dL (0.55-1.3)
[2024-05-23 11:20] LABS: BILIRUBIN,TOTAL 1.4 mg/dL (0.2-1); TOT PROT 7.4 g/dl (6.4-8.2)
[2024-05-23] MEDS: LACTATED RINGERS SOLUTION 1,000 ML/1,000 ML INFUS.BAG IV SCH (12:31)
[2024-05-23 23:26] VITALS: RESP 18
[2024-05-24] MEDS: hydrOXYzine PAMOATE 25 MG CAPSULE (FP) PO ONE (04:38)
[2024-05-24] MEDS: MELATONIN 5 MG TABLETS PO ONE (04:39)
[2024-05-24 09:55] LABS: BASO % 0.6 % (0-2.0); EOS % 3.1 % (0-4.5); HEMATOCRIT 37.3 % (32.4-45.2); HEMOGLOBIN 12.6 GM/dL (10.7-15.3); LYMPH % 32.2 % (8-40); MCH 28.8 pg (25.7-33.7); MCHC 33.7 g/dl (32.0-36.0); MEAN CELL VOLUME 85.4 fl (80-96); MEAN PLT VOLUME 9.3 fl (7.5-11.1); MONO % 7.6 % (3.8-10.2); NEUT % 56.5 % (42.8-82.8); PLATELET COUNT 258 10^3/uL (134-434); RBC 4.36 M/mm3 (3.60-5.2); RDW 14.2 % (11.6-15.6); WHITE BLOOD COUNT 8.5 K/mm3 (4.0-10.0)
[2024-05-24 10:08] LABS: POTASSIUM 3.6 mmol/L (3.5-5.1)
[2024-05-24] MEDS: CEFTRIAXONE 1 G/50 ML PREMIX 50 ML IVPB SCH (10:08)
[2024-05-24 10:11] LABS: CALCIUM 9.5 mg/dL (8.5-10.1)
[2024-05-24 10:12] LABS: ALBUMIN 3.4 g/dl (3.4-5.0); BLOOD UREA NITROGEN 9.1 mg/dL (7-18)
[2024-05-24 10:16] LABS: BILIRUBIN,TOTAL 1.1 mg/dL (0.2-1); TOT PROT 7.3 g/dl (6.4-8.2)
[2024-05-24 10:19] LABS: CREATININE 0.7 mg/dL (0.55-1.3)
[2024-05-25 09:33] LABS: BASO % 0.7 % (0-2.0); EOS % 3.3 % (0-4.5); HEMATOCRIT 35.4 % (32.4-45.2); HEMOGLOBIN 11.9 GM/dL (10.7-15.3); LYMPH % 29.4 % (8-40); MCH 28.6 pg (25.7-33.7); MCHC 33.5 g/dl (32.0-36.0); MEAN CELL VOLUME 85.3 fl (80-96); MEAN PLT VOLUME 8.9 fl (7.5-11.1); MONO % 7.7 % (3.8-10.2); NEUT % 58.9 % (42.8-82.8); PLATELET COUNT 252 10^3/uL (134-434); RBC 4.16 M/mm3 (3.60-5.2); RDW 14.3 % (11.6-15.6)
[2024-05-25 09:47] LABS: POTASSIUM 3.7 mmol/L (3.5-5.1)
[2024-05-25 09:49] LABS: CALCIUM 8.8 mg/dL (8.5-10.1)
[2024-05-25 09:50] LABS: ALBUMIN 3.2 g/dl (3.4-5.0); BLOOD UREA NITROGEN 7.2 mg/dL (7-18)
[2024-05-25 09:53] LABS: CREATININE 0.8 mg/dL (0.55-1.3)
[2024-05-25 09:55] LABS: BILIRUBIN,TOTAL 0.8 mg/dL (0.2-1); TOT PROT 6.5 g/dl (6.4-8.2)
[2024-05-25 15:08] VITALS: BP 134/68; PULSE 62; TEMP 97.7
== END 2024-05-25 16:49 | disposition home or self-care (01) ==
LOC: JER 23:23 → INTOOBSV 05-22 05:35 → JERBED 05-22 05:35 → J5S 05-22 07:43
PROVIDERS: ADMIT Internal Medicine; ATTEND Internal Medicine
PROC: 3E013VG Introduction of Insulin into Subcutaneous Tissue, Percutaneous Approach (ICD-10-PCS; principal; 2024-05-22)
PROC: 3E0337Z Introduction of Electrolytic and Water Balance Substance into Peripheral Vein, Percutaneous Approach (ICD-10-PCS; 2024-05-22)
DX: R74.01 Elevation of levels of liver transaminase levels (principal); R94.5 Abnormal results of liver function studies; I10 Essential (primary) hypertension; K59.00 Constipation, unspecified; E11.9 Type 2 diabetes mellitus without complications; E78.5 Hyperlipidemia, unspecified; Z90.79 Acquired absence of other genital organ(s); Z90.49 Acquired absence of other specified parts of digestive tract; Z87.19 Personal history of other diseases of the digestive system; Z91.013 Allergy to seafood; Z88.8 Allergy status to other drugs, medicaments and biological substances
CPT/HCPCS: 36415; 71045-TC-FY; 74177-TC; 74181-TC; 76705-TC; 80053; 81003; 82248; 82550; 82962; 82977; 83036; 83690; 84484; 85025; 85610; 86704; 86705; 86707; 86708; 86709; 86803; 87086; 87350; 87517; 93005; 93010; 96361; 96365; 96366; 96367; 96372; 99285-25; G0378; Q9967